=== PATIENT | male | born 1970 | race Caucasian/White ===

== ENCOUNTER 2016-08-09 09:00 | Emergency (ER) | payer OTHER ==
[~2016-08-09 09:00] MED LIST: AFRIN15 ML; AMOXICILLIN PO; AMOXICILLIN125 MG PO; AUGMENTIN PO; AUGMENTIN875 MG DOB; BACTRIM DS TABL1 TA1 PO; DARVOCET-N 1001 TAB PO; DICLOFENAC PO; FLECTOR1 EACH PO; FLEXERIL PO; FLEXERIL10 MG PO; FLONASE16 GM; IBUPROFEN PO; KEFLEX500 M1 PO; KETOPROFEN PO; LORTAB 5/500 TA1 TA1 PO; MEDROL PO; MEDROL4 MG/DOSE- PO; PEN-VEE K PO; PHENERGAN PO; PHENERGAN PR; PROTONIX PO; SKELAXIN PO; TYLOX 5/500 CAP1 CAP PO; ULTRAM PO; VICODIN; VICODIN 5/1 TAB 5/50 PO; VOLTAREN50 MG PO
== END 2016-08-09 09:58 | disposition home or self-care (01) ==
LOC: CED 09:00
DX: K08.89 Other specified disorders of teeth and supporting structures (principal)
CPT/HCPCS: 99282

== ENCOUNTER 2016-09-29 17:19 | Emergency (ER) | payer OTHER ==
[~2016-09-29] VITALS: Ht 175.3 cm; Wt 99.8 kg
--- NOTE | ~2016-09-29 | EKG ---
PATIENT: SEAN SALMON UNIT #: [id number] Ventricular Rate: 74 BPM Atrial Rate: 74 BPM P-R Interval: 194 ms QRS Duration: 102 ms Q-T Interval: 400 ms QTC Calculation(Bezet): 444 ms P [place]: 19 degrees Calculated R [place]: 37 degrees Calculated T [place]: 28 degrees Diagnosis Line: Normal sinus rhythm Diagnosis Line: Normal ECG Diagnosis Line: When compared with ECG of 30-DEC-2008 11:15, Diagnosis Line: No significant change was found Diagnosis Line: Confirmed by ML LORD MD ([id number]) on 09/30/2016 Diagnosis Line: 12:09:08 AM INTERPRETING MD: POP MEZA
[2016-09-29 18:06] LABS: BASOPHIL# 0.1 X10e3 (0-0.3); BASOPHIL% 0.7 % (0-2.5); EOSINOPHIL# 0.1 X10e3 (0-0.7); EOSINOPHIL% 1.6 % (0.0-7.0); HEMATOCRIT 37.4 % (38.0-50.0); HEMOGLOBIN 12.7 gm/dL (13.0-16.0); LYMPHOCYTE# 1.9 X10e3 (1.0-3.5); LYMPHOCYTE% 23.5 % (17.0-45.0); MEAN CORPUSCULAR HEMOGLOBIN 28.2 PG (28-34); MEAN CORPUSCULAR HGB CONC 33.9 g/dL (30-36); MEAN PLATELET VOLUME 7.7 FL (6.5-11.5); MONOCYTE# 0.7 X10e3 (0-1.0); MONOCYTE% 8.7 % (3.0-12.0); NEUTROPHIL# 5.3 X10e3 (1.5-7.1); NEUTROPHIL% 65.5 % (40-75); PLATELET COUNT 242 X10e3 (140-420); RED CELL DISTRIBUTION WIDTH 14.1 % (11.0-15.5); WHITE BLOOD COUNT 8.1 X10e3 (4.0-10.5)
[2016-09-29 18:07] LABS: DIFF IND NO
[2016-09-29 18:31] LABS: ALBUMIN SERUM 3.8 g/dL (3.5-5.0); ALKALINE PHOSPHATASE 59 U/L (32-92); ALT (SGPT) 20 U/L (10-40); AST (SGOT) 20 U/L (10-42); BILIRUBIN,TOTAL 0.3 mg/dL (0.2-2.0); BLOOD UREA NITROGEN 15 mg/dL (9-23); BUN/CREATININE RATIO 18.75; CARBON DIOXIDE 29 mmol/L (22-31); CHLORIDE 105 mmol/L (100-111); CREATININE SERUM 0.8 mg/dL (0.6-1.4); GLOM FILT RATE Estimated 107.9 mL/min (>60); GLUCOSE FASTING 108 mg/dL (70-110); LIPASE 18 U/L (22-51); POTASSIUM 3.5 mmol/L (3.5-5.1); PROTEIN TOTAL SERUM 6.7 g/dL (6.0-8.3); SODIUM 141 mmol/L (135-145)
[2016-09-29 18:40] LABS: BILIRUBIN, DIRECT <0.1 mg/dL (0.0-0.2); BILIRUBIN,INDIRECT 0.2 mg/dL (0.0-0.9)
[2016-09-29 19:30] LABS: URINE SOURCE CLEAN CATCH
[2016-09-29 19:38] LABS: URINE APPEARANCE CLEAR; URINE BILIRUBIN NEG (NEG); URINE BLOOD TRACE (NEG); URINE COLOR YELLOW; URINE GLUCOSE NEG (NEG); URINE KETONE NEG (NEG); URINE LEUKOCYTE ESTERASE NEG (NEG); URINE NITRATE NEG (NEG); URINE PH 7.5 (5-8); URINE PROTEIN NEG (NEG); URINE SPECIFIC GRAVITY 1.016 (1.003-1.035); URINE UROBILINOGEN 0.2 MG/DL (NEG)
[2016-09-29 19:41] LABS: URINE BACTERIA AUWI NEG (NEGATIVE); URINE SQUAMOUS EPITHELIAL CELL NONE SEEN /[HPF]; UWBCS1 AUWI 0-2 (0-5)
[2016-09-29 19:47] LABS: CULTURE INDICATED? NO
== END 2016-09-29 21:20 | disposition home or self-care (01) ==
LOC: CED 17:19
DX: K29.00 Acute gastritis without bleeding (principal); K21.9 Gastro-esophageal reflux disease without esophagitis
CPT/HCPCS: 36415; 80048; 80076; 81003; 83690; 85025; 93005; 99284